=== PATIENT | female | born 1960 | race Caucasian/White ===

== ENCOUNTER → 2016-08-19 | Outpatient (CLI) | payer OTHER ==
--- NOTE | 2016-08-20 10:11 | MM ---
Reason for exam: screening (asymptomatic). Last mammogram was performed 1 year and 9 months ago. History: Patient is postmenopausal. Took hormonal contraceptives for 10 years. Physical Findings: A clinical breast exam by your physician is recommended on an annual basis and results should be correlated with mammographic findings. MG Screening Mammo w CAD Bilateral CC and MLO view(s) were taken. Prior study comparison: November 21, 2014, bilateral MG screening mammo w CAD. November 01, 2013, bilateral digital screening mammo w/CAD. The breast tissue is almost entirely fat. No significant changes when compared with prior studies. ASSESSMENT: Benign, BI-RAD 2 RECOMMENDATION: Routine screening mammogram of both breasts in 1 year.
== END | disposition home or self-care (01) ==
LOC: RADMAMWWP 08:42
PROVIDERS: ATTEND Internal Medicine
DX: Z12.31 Encounter for screening mammogram for malignant neoplasm of breast (principal)

== ENCOUNTER → 2017-02-10 | Outpatient (CLI) | payer OTHER ==
--- NOTE | 2017-02-10 10:25 | XR ---
EXAMINATION TYPE: XR ankle complete LT, XR foot complete LT DATE OF EXAM: 02/10/2017 CLINICAL HISTORY: Fall injury 3 months ago with persistent medial side pain. TECHNIQUE: Frontal, lateral and oblique images of the left ankle and foot are obtained. COMPARISON: None. FINDINGS: There is no acute fracture/dislocation evident in the left ankle. The ankle mortise appea rs within normal limits. Small inferior calcaneal spur is redemonstrated. The overlying soft tissue a ppears unremarkable. There is no acute fracture or dislocation evident in the left foot. Flexion in the toes is seen. The Avendano's toe is present. Some calcification distal Achilles tendon is noted on oblique image. The mitzy nt spaces in the left foot are preserved. Overlying soft tissue is unremarkable. IMPRESSION: There is no acute or healing subacute fracture or dislocation in the left ankle or foot.
== END | disposition home or self-care (01) ==
LOC: RADXRMAIN 09:46
PROVIDERS: ATTEND Internal Medicine
DX: M25.572 Pain in left ankle and joints of left foot (principal)

== ENCOUNTER → 2017-12-29 | Outpatient (CLI) | payer BC ==
--- NOTE | 2018-01-02 10:08 | MM ---
Reason for exam: screening (asymptomatic). Last mammogram was performed 1 year and 4 months ago. History: Patient is postmenopausal. Took hormonal contraceptives for 10 years. MG Screening Mammo w CAD Bilateral CC and MLO view(s) were taken. Prior study comparison: August 19, 2016, bilateral MG screening mammo w CAD. November 21, 2014, bilateral MG screening mammo w CAD. There are scattered fibroglandular densities. No suspicious abnormality. Upper inner quadrant left focal asymmetry is smaller than on the exam of 09/21/12. No significant changes when compared with prior studies. ASSESSMENT: Benign, BI-RAD 2 RECOMMENDATION: Routine screening mammogram of both breasts in 1 year.
== END | disposition home or self-care (01) ==
LOC: RADMAMWWP 09:07
PROVIDERS: ATTEND Obstetrics & Gynecology
DX: Z12.31 Encounter for screening mammogram for malignant neoplasm of breast (principal)
CPT/HCPCS: 77067

== ENCOUNTER → 2018-06-13 | Outpatient (CLI) | payer BC ==
--- NOTE | 2018-06-13 20:40 | CONS ---
CONSULTATION REASON FOR CONSULTATION: Loud snoring and possible sleep apnea. HISTORY: A 57-year-old female patient was referred to me upon the request of the primary care physician and her . Her PCP is Dr. North. Her has noted that the patient has been snoring loudly especially since she gained around 10 to 20 pounds over the past 1 year. She has been also noted to have some occasional witnessed apneas. 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 During the day she gets tired, however, she does not fall asleep while doing her work. She does not fall asleep while driving. No sleep paralysis. No hallucinations. No cataplexy. She occasionally grinds her teeth. She has occasional heartburn, not at night time. She goes to bed around 10:30 p.m., wakes up 6:30 a.m. in the morning. On weekends she states she get up at 7:30 a.m. in the morning. Hostetter score is currently a 13. PAST MEDICAL HISTORY: Hyperlipidemia, obesity, and depression. PAST SURGICAL HISTORY: Include abdominoplasty and partial hysterectomy. DRUG ALLERGIES: Not known. OUTPATIENT MEDICATIONS: Includes Zoloft 50 mg p.o. daily and Lipitor 10 mg in the morning. SOCIAL HISTORY: Nonsmoker. No history of alcohol abuse, no history of IV drugs. 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 FAMILY HISTORY: Negative for sleep apnea. REVIEW OF SYSTEMS: A 12-point review of system was done. Positive findings are mentioned above history of present illness. PHYSICAL EXAMINATION: BP is 148/75, pulse 72, respirations 16, temperature 98.6, temperature 98.2 saturation 95% on room air. Weight is 272. Height is 5 feet 7 inches, neck size 16 inches. GENERAL APPEARANCE: Calm and comfortable. HEAD: Atraumatic, normocephalic. NECK: Supple. There is no JVD. No goiter or neck masses. LUNGS: Clear to auscultation. HEART: Sounds regular rhythm. Normal S1, S2. No S3. No murmurs. ABDOMEN: Soft, nontender. No organomegaly. EXTREMITIES: No edema. No cyanosis or clubbing. IMPRESSION: 1. Primary snoring versus obstructive sleep apnea. Although the first is more suspected. 2. Limited fatigue and sleepiness, Hostetter score of 13. 3. Obesity with a BMI of 33.4. PLAN: 1. Home sleep study to screen the patient for obstructive sleep apnea. 2. Encourage weight loss. 3. The patient was noted to have no significant crowding of the posterior pharynx. She has some mild grinding and overbite. She will consult with her dentist regarding the possibility of a snore guard or an oral appliance, especially if mild obstructive sleep apnea is confirmed. We will continue to follow. MMJOSE / IJN: [id number] /
== END | disposition home or self-care (01) ==
LOC: SLEEP 16:49
PROVIDERS: ATTEND Internal Medicine Critical Care Medicine
DX: R53.83 Other fatigue (principal); R40.0 Somnolence; E66.9 Obesity, unspecified; Z68.33 Body mass index [BMI] 33.0-33.9, adult; Z90.711 Acquired absence of uterus with remaining cervical stump; Z79.899 Other long term (current) drug therapy
CPT/HCPCS: 99211

== ENCOUNTER → 2018-10-24 | Outpatient (CLI) | payer BC ==
--- NOTE | 2018-10-24 20:29 | PN ---
PROGRESS NOTE This is a progress notes Sleep Center. 57-year-old female patient coming in for a compliancy check regarding her obstructive sleep apnea. The patient was diagnosed having severe VIKTORIA with an AHI of 33.7, currently on CPAP pressure of 9. She is extremely happy with the treatment. She is reporting marked improvement in sleep quality. She is waking up alert and awake during the day. Marked improved in her sleepiness. She is trying to lose weight. She is using ketogenic diet. She lost about 6 pounds since her last evaluation. She works locally at an [employer]. She is awake and alert. She is able to function well without having to fall asleep on the computer. Based on the compliance, data the patient has been averaging around 8.3 hours of CPAP use per night. Her CPAP use for more than 4 hours 100%. Her AHI down to 2. Leak factor 16 L/minute. The patient is using a Dream Wear small size nose mask. REVIEW OF SYSTEMS: 14 point review of system was done. Essentially negative other than as mentioned above in history of present illness. There is interval weight loss in the order of 6 pounds. No major hypersomnia or sleepiness. No nighttime chest pain, shortness of breath. Heartburn. No hypersomnia or sleeping. No altered mentation. No sinus pressure. No no gaseous distention of the abdomen. No other complaints otherwise. PHYSICAL EXAMINATION: BP is 140/59, pulse 62, respirations 16, temperature 98.2. Saturation 96% on room air. Weight is 211 and BP is 140/59. GENERAL APPEARANCE: Calm, comfortable. Head is atraumatic, normocephalic. NECK: Supple. No JVD. No goiter or neck mass. Mallampati class IV. LUNGS: Clear to auscultation. HEART: Sounds regular rate and rhythm. Normal S1, S2. No S3. No murmurs. ABDOMEN: Soft, nontender. No organomegaly. EXTREMITIES: No edema. No cyanosis or clubbing. NEUROLOGIC: Alert and oriented x3. No focal neurological deficits. PSYCHIATRIC: Negative for anxiety or depression. IMPRESSION: 1. Severe symptomatic obstructive sleep apnea with an AHI of 33.7, currently on CPAP pressure of 9 cm of water with excellent clinical response and compliance. 2. Hypersomnia, improved and the patient's Malinta score is down to 3. 3. Obesity with interval 6 pounds weight loss. The patient is following ketogenic diet. 4. Nocturnal oxygen desaturation recovered with CPAP therapy. PLAN: 1. Continue CPAP therapy at same level of pressure. 2. Encourage further weight loss. 3. Compliance data was checked, numbers are good and satisfactory. 4. No need for any further adjustments. 5. See me back in a year's time in follow up, earlier if needed. MMODL / IJN: [id number] /
== END | disposition home or self-care (01) ==
LOC: SLEEP 16:59
PROVIDERS: ATTEND Internal Medicine Critical Care Medicine
DX: G47.33 Obstructive sleep apnea (adult) (pediatric) (principal); E66.9 Obesity, unspecified; R63.4 Abnormal weight loss; Z99.89 Dependence on other enabling machines and devices

== ENCOUNTER → 2019-05-24 | Outpatient (CLI) | payer BC ==
--- NOTE | 2019-05-25 09:24 | MM ---
Reason for exam: screening (asymptomatic). Last mammogram was performed 1 year and 5 months ago. History: Patient is postmenopausal. Took hormonal contraceptives for 10 years. Physical Findings: A clinical breast exam by your physician is recommended on an annual basis and results should be correlated with mammographic findings. MG Screening Mammo w CAD Bilateral CC and MLO view(s) were taken. Prior study comparison: December 29, 2017, bilateral MG screening mammo w CAD. August 19, 2016, bilateral MG screening mammo w CAD. There are scattered fibroglandular densities. There is no discrete abnormality. No significant changes when compared with prior studies. ASSESSMENT: Negative, BI-RAD 1 RECOMMENDATION: Routine screening mammogram of both breasts in 1 year.
== END | disposition home or self-care (01) ==
LOC: RADMAMWWP 07:20
PROVIDERS: ATTEND Obstetrics & Gynecology
DX: Z12.31 Encounter for screening mammogram for malignant neoplasm of breast (principal)
CPT/HCPCS: 77067

== ENCOUNTER 2020-04-15 19:56 | Emergency (ER) | payer BC ==
[2020-04-15 20:15] VITALS: PULSE 65; TEMP 98.7
--- NOTE | 2020-04-15 20:39 | ED ---
General Adult HPI - General Chief complaint: Fall Stated complaint: Fall, L Arm Pain Time Seen by Provider: 04/15/20 20:20 Source: patient, RN notes reviewed Mode of arrival: ambulatory Limitations: no limitations - History of Present Illness Initial comments: Patient is a pleasant 59-year-old female presenting to the emergency Department with left upper forearm pain. Patient states her ankle rolled and she fell down onto her left arm. Patient states that does have empirically to her. Patient denies any ankle discomfort. Patient does complain of outer to severe discomfort left forearm. Discomfort increases with movement. Patient has no some swelling. No history of previous injury there. No head injury or loss of consciousness. - Related Data Allergies Allergy/AdvReac Type Severity Reaction Status Date / Time No Known Allergies Allergy Verified 04/15/20 20:15 Review of Systems ROS Statement: Those systems with pertinent positive or pertinent negative responses have been documented in the HPI. ROS Other: All systems not noted in ROS Statement are negative. Constitutional: Denies: fever Eyes: Denies: eye pain ENT: Denies: ear pain Respiratory: Denies: cough Cardiovascular: Denies: chest pain Endocrine: Denies: fatigue Gastrointestinal: Denies: abdominal pain Genitourinary: Denies: dysuria Musculoskeletal: Reports: as per HPI. Denies: back pain Skin: Denies: rash Neurological: Denies: weakness Past Medical History Past Medical History: Hyperlipidemia, Thyroid Disorder History of Any Multi-Drug Resistant Organisms: None Reported Past Surgical History: Hysterectomy Additional Past Surgical History / Comment(s): "tummy tuck" Past Psychological History: No Psychological Hx Reported Smoking Status: Never smoker Past Alcohol Use History: Occasional Past Drug Use History: None Reported General Exam Limitations: no limitations General appearance: alert, in no apparent distress Head exam: Present: normocephalic Eye exam: Present: normal appearance Neck exam: Present: normal inspection. Absent: tenderness Respiratory exam: Present: normal lung sounds bilaterally Cardiovascular Exam: Present: regular rate, normal rhythm Expanded Peripheral pulses: 2+: Radial (L) GI/Abdominal exam: Present: soft. Absent: tenderness Extremities exam: Present: tenderness (Moderate tenderness left proximal radius. Pain with range of motion. Distally the extremity is neurovascular intact.) Back exam: Present: normal inspection. Absent: vertebral tenderness Neurological exam: Present: alert. Absent: motor sensory deficit Psychiatric exam: Present: normal affect, normal mood Skin exam: Present: normal color Course Vital Signs 04/15/20 20:10 Temperature 98.7 F Pulse Rate 65 Respiratory 19 Rate Blood Pressure 185/70 O2 Sat by Pulse 98 Oximetry Procedures - Orthopedic Splinting/Casting Injury #1 Side: left Upper Extremity Injury Location: long arm Upper Extremity Immobilizer: posterior splint Medical Decision Making - Medical Decision Making Patient reevaluated and updated. - Radiology Data Radiology results: image reviewed (X-ray left forearm does show proximal ulnar fracture, 3 part.) Disposition Clinical Impression: Fall, Fracture of proximal end of left ulna Disposition: HOME SELF-CARE Instructions (If sedation given, give patient instructions): Arm Fracture in Adults (ED) Additional Instructions: Please follow-up with orthopedics in the next couple days for recheck. Ice to affected area. Return for increased pain, weakness or difficulty using hand, worsening symptoms or other concerns. Is patient prescribed a controlled substance at d/c from ED?: No Referrals: Reanna Urbano NPC [Primary Care Provider] - 1-2 days Richie Callaway MD [STAFF PHYSICIAN] - 1-2 days Time of Disposition: 21:28
[2020-04-15] MEDS ORDERED: HYDROmorphone 1 MG/ML 1 ML SYRINGE IM STA (20:55)
--- NOTE | 2020-04-15 21:14 | XR ---
EXAMINATION TYPE: XR forearm LT DATE OF EXAM: 04/15/2020 COMPARISON: NONE HISTORY: Pain TECHNIQUE: 2 views FINDINGS: There is oblique fracture through the proximal shaft of the ulna. Fracture line extends thr ough the coronoid process of the ulna. There is no dislocation. Radius is intact. IMPRESSION: Acute fracture of the proximal ulna. Separation of the fragments up to 1 cm.
[2020-04-15] MEDS ORDERED: ACET/COD 300 MG/30 MG STARTER PACK 6 TAB BTL PO STA (21:27)
[2020-04-15 21:43] VITALS: BP 178/89; RESP 16
== END 2020-04-15 21:41 | disposition home or self-care (01) ==
LOC: EC 19:56
DX: S52.002A Unspecified fracture of upper end of left ulna, initial encounter for closed fracture (principal); W01.0XXA Fall on same level from slipping, tripping and stumbling without subsequent striking against object, initial encounter; Y93.01 Activity, walking, marching and hiking; Y92.009 Unspecified place in unspecified non-institutional (private) residence as the place of occurrence of the external cause
CPT/HCPCS: 73090; 99283; 29105; 96372; J1170

== ENCOUNTER → 2020-04-17 | Outpatient (CLI) | payer BC ==
--- NOTE | 2020-04-17 13:14 | CT ---
EXAMINATION TYPE: CT elbow LT wo con DATE OF EXAM: 04/17/2020 COMPARISON: Plain films 04/15/2020 HISTORY: Lt elbow fx CT DLP: 130.7 mGycm Automated exposure control for dose reduction was used. TECHNIQUE: Axial images 2 mm thick sections. Reconstructed images in the coronal and sagittal plane. Images were obtained through a fiberglass splint. FINDINGS: There is a comminuted fracture at the left elbow. There is a fracture through the proximal olecranon which has extension into the joint space. Diastases of fracture fragments approximately 1 cm is evide nt. There is a fracture of the anterior superior ulna at the joint space. Transverse fracture of the proximal diaphysis of the ulna is also evident. There is a fracture of the anterior radial head with intra-articular extension. There are also fractu re fragments present at the posterior inferior radial aspect of the distal humerus. IMPRESSION: 1. COMMINUTED FRACTURE PROBABLY WITHIN THE ULNA WITH DIASTASES OF FRACTURE FRAGMENTS. INTRA-ARTICULAR EXTENSION IS EVIDENT. 2. SUSPECTED DISLOCATION WITH REDUCTION OF THE RADIUS WITH FRACTURE OF THE ANTERIOR RADIAL HEAD AND P OSTERIOR DISTAL HUMERUS WITH SMALL COMMINUTED FRACTURE FRAGMENTS PRESENT AT THESE LOCATIONS.
== END | disposition home or self-care (01) ==
LOC: RADCTMAIN 07:27
PROVIDERS: ATTEND Orthopaedic Surgery Sports Medicine
DX: M25.522 Pain in left elbow (principal); S52.032A Displaced fracture of olecranon process with intraarticular extension of left ulna, initial encounter for closed fracture

== ENCOUNTER → 2021-01-14 | Outpatient (CLI) | payer BC ==
--- NOTE | 2021-01-14 07:45 | US ---
EXAMINATION TYPE: US thyroid st tissue head/neck DATE OF EXAM: 01/14/2021 COMPARISON: 11/21/2014 CLINICAL HISTORY: E03.9 hypothyroidism, E01.0 thyromegaly. hypothyroidism family hx of thy ca GLAND SIZE: Right Lobe: 4.8 x 1.3 x 1.4 cm Overall Parenchyma: homogenous Left Lobe: 4.1 x .9 x 1.3 cm Overall Parenchyma: homogeneous Isthmus Thickness: .3 cm NODULES RIGHT: # of nodules measured on right: 0 LEFT: # of nodules measured on left: 0 ISTHMUS: # of nodules measured in the isthmus: 0 Bilateral neck scanned, no evidence of lymphadenopathy. IMPRESSION: No solid nodule identified within the thyroid gland. 2017 ACR TI-RADS LEVEL: TR-RADS 1 - BENIGN: No FNA *Highest TI-RADS level nodule reported
== END | disposition home or self-care (01) ==
LOC: RADUSWWP 07:16
PROVIDERS: ATTEND Internal Medicine
DX: E03.9 Hypothyroidism, unspecified (principal); E04.1 Nontoxic single thyroid nodule
CPT/HCPCS: 76536

== ENCOUNTER → 2021-02-19 | Outpatient (CLI) | payer BC ==
--- NOTE | 2021-02-19 10:04 | MM ---
Reason for exam: screening (asymptomatic). Last mammogram was performed 1 year and 9 months ago. History: Patient is postmenopausal. Took hormonal contraceptives for 10 years. Physical Findings: A clinical breast exam by your physician is recommended on an annual basis and results should be correlated with mammographic findings. MG Screening Mammo w CAD Bilateral CC and MLO view(s) were taken. Prior study comparison: May 24, 2019, bilateral MG screening mammo w CAD. December 29, 2017, bilateral MG screening mammo w CAD. There are scattered fibroglandular densities. There is no discrete abnormality. No significant changes when compared with prior studies. ASSESSMENT: Negative, BI-RAD 1 RECOMMENDATION: Routine screening mammogram of both breasts in 1 year.
== END | disposition home or self-care (01) ==
LOC: RADMAMWWP 07:02
PROVIDERS: ATTEND Obstetrics & Gynecology
DX: Z12.31 Encounter for screening mammogram for malignant neoplasm of breast (principal); Z78.0 Asymptomatic menopausal state; Z79.3 Long term (current) use of hormonal contraceptives
CPT/HCPCS: 77067

== ENCOUNTER → 2024-08-30 | Outpatient (CLI) | payer OTHER ==
--- NOTE | 2024-08-30 12:14 | MM ---
Reason for Exam: Screening (asymptomatic). Last mammogram was performed 1 year(s) and 4 month(s) ago. Patient History: Menarche at age 13. First Full-Term at age 24. Hysterectomy at age 50. Postmenopausal. Patient used Hormonal Contraceptives for 10 years. Risk Values: Jessica 5 year model risk: 1.4%. NCI Lifetime model risk: 6.2%. Prior Study Comparison: 05/24/2019 Bilateral Screening Mammogram, [facility]. 02/19/2021 Bilateral Screening Mammogram, [facility]. 04/28/2023 Bilateral MG 3D screening mammo w/cad, [facility]. Tissue Density: There are scattered areas of fibroglandular density. Findings: Analyzed By CAD. Right breast: There is no suspicious group of microcalcifications or new suspicious mass. Left breast: There is no suspicious group of microcalcifications or new suspicious mass. Overall Assessment: Negative, BI-RAD 1 Management: Screening Mammogram of both breasts in [address] [facility] will attempt to contact patient to return for supplemental views and ultrasound if indicated. Patient should continue monthly self-breast exams. A clinical breast exam by your physician is recommended on an annual basis. This exam should not preclude additional follow-up of suspicious palpable abnormalities. Note on Jessica scores and lifetime risk: 1. A Jessica score greater than 3% is considered moderate risk. If this is the case, consider specialist referral to assess eligibility for a risk reducing agent. 2. If overall lifetime risk for the development of breast cancer is 20% or higher, the patient may qualify for future screening with alternating mammogram and breast MRI. [facility], , 08/30/2024 12:11 PM. Electronically signed and approved by: Julio Cesar Ivy DO
== END | disposition home or self-care (01) ==
LOC: RADMAMWWP 10:55
PROVIDERS: ATTEND Family Medicine
DX: Z12.31 Encounter for screening mammogram for malignant neoplasm of breast (principal); R92.323 Mammographic fibroglandular density, bilateral breasts; Z78.0 Asymptomatic menopausal state
CPT/HCPCS: 77063; 77067